=== PATIENT | female | born 1940 | race African-American/Black ===

== ENCOUNTER 2019-02-22 12:48 | Inpatient (IN) ==
[2019-02-22 14:17] LABS: Basophils % 0.3 % (0.0-0.8); Eosinophils # 0.1 10*3/uL (0.0-0.87); Eosinophils % 0.5 % (0.00-10.9); Hematocrit 27.3 VOL% (35.7-47.0); Hemoglobin 8.5 GM/DL (12.0-16.0); Immature Granulocytes Absolute 0.13 #; Lymphocytes # 1.1 10*3/uL (1.4-4.0); Lymphocytes % 8.2 % (21.3-54.2); Mean Corpuscular HGB Conc 31.1 GM/DL (32-36); Mean Corpuscular Volume 89.2 FL (87-102); Mean Platelet Volume 11.4 FL (9.6-12.0); Monocytes % 8.1 % (1.7-12.7); Neutrophils % 81.9 % (38.7-73.9); Platelet Count 180 T/CUMM (130-400); Red Blood Count 3.06 MC/CUMM (3.8-5.5); Red Cell Distribution Width 16.5 % (9.3-17.3); White Blood Count 12.9 T/CUMM (4-12)
[2019-02-22 14:36] LABS: Alanine Aminotransferase 32 U/L (13-56); Albumin 3.1 G/DL (3.4-5.0); Alkaline Phosphatase 105 U/L (45-117); Aspartate Amino Transferase 59 U/L (0-37); Bilirubin,Total < 0.39 MG/DL (0.2-1.0); Blood Urea Nitrogen 70 MG/DL (7-18); Calcium 8.7 MG/DL (8.5-10.1); Estimated Glom Filtration Rate 14 ML/MIN; Glucose 135 MG/DL (74-106); Osmolality,Calculated 295.8 MOS/KG (273-304); Total Protein 8.5 G/DL (6.4-8.3)
[2019-02-22 14:39] LABS: Apearance,Urine CLOUDY (Clear); Bacteria,Urine Occasional /HPF (Few); Bilirubin,Urine Negative (Negative); Blood, Urine Negative (Negative); Glucose,Urine (UA) Negative (Negative); Ketones,Urine Negative (Negative); Nitrite,Urine Negative (Negative); Protein,Urine 30 MG/DL; Squamous Epithelial Cell,Urine Occasional /HPF (0-10); Transitional Epi Cells,Urine Occasional /HPF (<1); Urine Specific Gravity 1.015 (1.001-1.035); Urine Urobilinogen < 2.0 EU/DL (0.2-1.0); WBC,Urine 32 /HPF (0-6)
[2019-02-22 14:40] LABS: Urine Color Dark yellow (Yellow)
[2019-02-22] MEDS ORDERED: cefTRIAXone 1,000 MG in SODIUM CHLORIDE 0.9% 100 ML IV STA (15:30)
[2019-02-22] MEDS ORDERED: FUROSEMIDE 100 MG/10 ML VIAL IV STA (15:30)
[2019-02-22] MEDS ORDERED: MAGNESIUM SULF RIDER 2 GM in PREMIX 1 EACH IV PRN (16:11)
[2019-02-22] MEDS ORDERED: ONDANSETRON 4 MG/2 ML VIAL IV PRN (16:11)
[2019-02-22] MEDS ORDERED: MAGNESIUM SULF RIDER 4 GM in PREMIX 1 EACH IV PRN (16:11)
[2019-02-22] MEDS ORDERED: ENOXAPARIN 30 MG/0.3 ML SYRINGE SUBCUT SCH (16:30)
[2019-02-22] MEDS ORDERED: SODIUM POLYSTYRENE SULFATE 15 GM/60 ML BOTTLE PO STA (18:42)
[2019-02-22] MEDS ORDERED: ASPIRIN CHEW 81 MG TABLET PO ONE (20:35)
[2019-02-22] MEDS: ENOXAPARIN 120 MG/0.8 ML SYRINGE SUBCUT SCH (22:11)
[2019-02-23 05:35] LABS: Basophils % 0.4 % (0.0-0.8); Eosinophils # 0.1 10*3/uL (0.0-0.87); Eosinophils % 0.8 % (0.00-10.9); Hematocrit 24.5 VOL% (35.7-47.0); Hemoglobin 7.6 GM/DL (12.0-16.0); Immature Granulocytes Absolute 0.21 #; Lymphocytes # 1.3 10*3/uL (1.4-4.0); Lymphocytes % 12.6 % (21.3-54.2); Mean Corpuscular Volume 87.8 FL (87-102); Monocytes % 10.6 % (1.7-12.7); Neutrophils % 73.6 % (38.7-73.9); Platelet Count 185 T/CUMM (130-400); Red Blood Count 2.79 MC/CUMM (3.8-5.5); Red Cell Distribution Width 16.2 % (9.3-17.3); White Blood Count 10.6 T/CUMM (4-12)
[2019-02-23 05:51] LABS: Albumin 2.8 G/DL (3.4-5.0); Bilirubin,Total 0.5 MG/DL (0.2-1.0); Calcium 8.5 MG/DL (8.5-10.1); Osmolality,Calculated 303.1 MOS/KG (273-304); Total Protein 7.8 G/DL (6.4-8.3)
[2019-02-23] MEDS: ASPIRIN CHEW 81 MG TABLET PO SCH (08:56)
[2019-02-23] MEDS: FUROSEMIDE 40 MG/4 ML VIAL IV SCH ×2 (08:57→17:00)
[2019-02-23 11:29] LABS: % Iron Saturation 7.3 % (18-50)
[2019-02-23] MEDS: FERRIC GLUCONATE COMPLEX 125 MG in SODIUM CHLORIDE 0.9% 100 ML IV SCH (15:03)
[2019-02-23] MEDS: cefTRIAXone 1,000 MG in SYRINGE 1 EACH IV SCH (17:03)
[2019-02-23] MEDS: ACETAMINOPHEN 325 MG TABLET PO PRN (20:04)
[2019-02-23] MEDS: METOPROLOL TARTRATE 50 MG TABLET PO SCH (20:04)
[2019-02-23] MEDS: ENOXAPARIN 120 MG/0.8 ML SYRINGE SUBCUT SCH (20:04)
[2019-02-24] MEDS: ASPIRIN CHEW 81 MG TABLET PO SCH (09:17)
[2019-02-24] MEDS: METOPROLOL TARTRATE 50 MG TABLET PO SCH ×2 (09:17→21:39)
[2019-02-24] MEDS: FUROSEMIDE 40 MG/4 ML VIAL IV SCH (09:19)
[2019-02-24] MEDS: cefTRIAXone 1,000 MG in SYRINGE 1 EACH IV SCH (09:20)
[2019-02-24] MEDS: FERRIC GLUCONATE COMPLEX 125 MG in SODIUM CHLORIDE 0.9% 100 ML IV SCH (09:36)
[2019-02-24] MEDS ORDERED: POLYETHYLENE GLYCOL POWDER 17 GM PACK PO SCH (12:00)
[2019-02-24] MEDS: POLYETHYLENE GLYCOL POWDER 17 GM PACK PO SCH (21:39)
[2019-02-24] MEDS: DOCUSATE SODIUM 100 MG CAPSULE PO SCH (21:39)
[2019-02-24] MEDS: LACTULOSE 20 GM/30 ML UDCUP PO SCH (21:40)
[2019-02-25 05:07] LABS: Basophils # 0.1 10*3/uL (0.0-0.2); Basophils % 0.4 % (0.0-0.8); Eosinophils # 0.3 10*3/uL (0.0-0.87); Eosinophils % 2.9 % (0.00-10.9); Hematocrit 26.1 VOL% (35.7-47.0); Immature Granulocytes % 5.5 %; Immature Granulocytes Absolute 0.65 #; Lymphocytes # 2.1 10*3/uL (1.4-4.0); Lymphocytes % 17.5 % (21.3-54.2); Mean Corpuscular HGB Conc 30.7 GM/DL (32-36); Mean Corpuscular Volume 87.6 FL (87-102); Mean Platelet Volume 11.6 FL (9.6-12.0); Monocytes % 11.8 % (1.7-12.7); Neutrophils % 61.9 % (38.7-73.9); Platelet Count 286 T/CUMM (130-400); Red Blood Count 2.98 MC/CUMM (3.8-5.5); Red Cell Distribution Width 16.1 % (9.3-17.3); White Blood Count 11.7 T/CUMM (4-12)
[2019-02-25 05:23] LABS: Calcium 8.6 MG/DL (8.5-10.1); Osmolality,Calculated 303.1 MOS/KG (273-304)
[2019-02-25 06:00] LABS: Anisocytosis 1+; Band Neutrophils 1 % (0-10); Eosinophils 8 % (0-10); Lymphocytes 14 % (20-55); Segmented Neutrophils 67 % (50-85); Total Cells Counted 100
[2019-02-25 06:01] LABS: Acanthocytes Few; Hypochromasia 1+; Platelet Estimate Normal; Target Cells Few
[2019-02-25] MEDS: FERRIC GLUCONATE COMPLEX 125 MG in SODIUM CHLORIDE 0.9% 100 ML IV SCH (09:38)
[2019-02-25] MEDS: ASPIRIN CHEW 81 MG TABLET PO SCH (09:39)
[2019-02-25] MEDS: METOPROLOL TARTRATE 50 MG TABLET PO SCH ×2 (09:39→21:08)
[2019-02-25] MEDS: DOCUSATE SODIUM 100 MG CAPSULE PO SCH ×2 (09:39→21:08)
[2019-02-25] MEDS: LACTULOSE 20 GM/30 ML UDCUP PO SCH ×2 (09:40→21:09)
[2019-02-25] MEDS: FUROSEMIDE 40 MG/4 ML VIAL IV SCH (09:42)
[2019-02-25] MEDS: cefTRIAXone 2,000 MG in SYRINGE 1 EACH IV SCH (09:43)
[2019-02-25] MEDS: POLYETHYLENE GLYCOL POWDER 17 GM PACK PO SCH ×2 (09:48→21:08)
[2019-02-25] MEDS: ACETAMINOPHEN 325 MG TABLET PO PRN ×3 (10:37→21:13)
[2019-02-25] MEDS ORDERED: POLYETHYLENE GLYCOL POWDER 17 GM PACK PO SCH (11:00)
[2019-02-25] MEDS: SENNA 8.6 MG TABLET PO SCH (21:09)
[2019-02-26 04:33] LABS: Basophils % 0.3 % (0.0-0.8); Eosinophils # 0.7 10*3/uL (0.0-0.87); Eosinophils % 5.1 % (0.00-10.9); Hematocrit 26.5 VOL% (35.7-47.0); Hemoglobin 8.1 GM/DL (12.0-16.0); Immature Granulocytes Absolute 0.52 #; Lymphocytes # 1.9 10*3/uL (1.4-4.0); Lymphocytes % 14.3 % (21.3-54.2); Mean Corpuscular HGB Conc 30.6 GM/DL (32-36); Mean Corpuscular Volume 88.3 FL (87-102); Mean Platelet Volume 11.3 FL (9.6-12.0); Monocytes % 8.6 % (1.7-12.7); Neutrophils % 67.7 % (38.7-73.9); Platelet Count 347 T/CUMM (130-400); Red Cell Distribution Width 16.4 % (9.3-17.3)
[2019-02-26 05:46] LABS: Anisocytosis 1+; Eosinophils 2 % (0-10); Hypochromasia 1+; Lymphocytes 14 % (20-55); Macrocytosis 1+; Microcytosis 1+; Myelocytes 1 %; Ovalocytes 1+; Segmented Neutrophils 79 % (50-85); Target Cells 1+; Total Cells Counted 100
[2019-02-26 05:47] LABS: Platelet Estimate Adequate; Polychromasia 1+
[2019-02-26] MEDS: ACETAMINOPHEN 325 MG TABLET PO PRN ×2 (10:05→14:11)
[2019-02-26] MEDS: ASPIRIN CHEW 81 MG TABLET PO SCH (10:06)
[2019-02-26] MEDS: METOPROLOL TARTRATE 50 MG TABLET PO SCH ×2 (10:06→20:56)
[2019-02-26] MEDS: DOCUSATE SODIUM 100 MG CAPSULE PO SCH ×2 (10:06→20:56)
[2019-02-26] MEDS: POLYETHYLENE GLYCOL POWDER 17 GM PACK PO SCH ×2 (10:07→20:56)
[2019-02-26] MEDS: FUROSEMIDE 40 MG/4 ML VIAL IV SCH (10:09)
[2019-02-26] MEDS: LACTULOSE 20 GM/30 ML UDCUP PO SCH ×2 (10:10→20:57)
[2019-02-26] MEDS: cefTRIAXone 2,000 MG in SYRINGE 1 EACH IV SCH (10:10)
[2019-02-26] MEDS: SENNA 8.6 MG TABLET PO SCH (20:56)
[2019-02-27] MEDS: ACETAMINOPHEN 325 MG TABLET PO PRN ×2 (00:26→05:20)
[2019-02-27 05:31] LABS: Basophils # 0.1 10*3/uL (0.0-0.2); Basophils % 0.4 % (0.0-0.8); Eosinophils # 0.6 10*3/uL (0.0-0.87); Eosinophils % 4.3 % (0.00-10.9); Hematocrit 26.2 VOL% (35.7-47.0); Hemoglobin 7.8 GM/DL (12.0-16.0); Immature Granulocytes % 2.8 %; Immature Granulocytes Absolute 0.39 #; Lymphocytes # 1.9 10*3/uL (1.4-4.0); Lymphocytes % 13.3 % (21.3-54.2); Mean Corpuscular HGB Conc 29.8 GM/DL (32-36); Mean Platelet Volume 11.1 FL (9.6-12.0); Monocytes % 7.1 % (1.7-12.7); Neutrophils % 72.1 % (38.7-73.9); Platelet Count 378 T/CUMM (130-400); Red Blood Count 2.91 MC/CUMM (3.8-5.5); Red Cell Distribution Width 16.2 % (9.3-17.3)
[2019-02-27 05:45] LABS: Calcium 8.6 MG/DL (8.5-10.1); Osmolality,Calculated 301.1 MOS/KG (273-304)
[2019-02-27 05:58] LABS: Band Neutrophils 1 % (0-10); Eosinophils 7 % (0-10); Lymphocytes 6 % (20-55); Myelocytes 1 %; Segmented Neutrophils 78 % (50-85); Total Cells Counted 100
[2019-02-27 05:59] LABS: Anisocytosis 1+; Hypochromasia 1+; Platelet Estimate Adequate; Target Cells Few
[2019-02-27] MEDS: POLYETHYLENE GLYCOL POWDER 17 GM PACK PO SCH (10:51)
[2019-02-27] MEDS: LACTULOSE 20 GM/30 ML UDCUP PO SCH (10:51)
[2019-02-27] MEDS: DOCUSATE SODIUM 100 MG CAPSULE PO SCH (10:51)
[2019-02-27] MEDS: ASPIRIN CHEW 81 MG TABLET PO SCH (10:51)
[2019-02-27] MEDS: METOPROLOL TARTRATE 50 MG TABLET PO SCH (10:51)
[2019-02-27] MEDS: FUROSEMIDE 40 MG/4 ML VIAL IV SCH (10:52)
[2019-02-27] MEDS: cefTRIAXone 2,000 MG in SYRINGE 1 EACH IV SCH (11:01)
[2019-02-27 11:54] VITALS: BP 141/46
[2019-02-27] MEDS ORDERED: PENICILLIN VK 500 MG TABLET PO SCH (13:00)
== END 2019-02-27 15:43 | disposition home or self-care (01) | DRG 871 ==
LOC: EDBD → EDUNIT# → N.ED 12:48 → N.EDINP 15:55 → SUATTDRO 15:55 → N.2E 16:56
PROVIDERS: ADMIT Family Medicine; ATTEND Hospitalist

== ENCOUNTER 2020-07-03 08:49 | Inpatient (IN) ==
[2020-07-03] MEDS ORDERED: DEXTROSE 50% 25 GM/50 ML VIAL IV PRN (08:50)
[2020-07-03] MEDS ORDERED: GLUCAGON 1 MG VIAL IM PRN (08:50)
[2020-07-03] MEDS: CHLORHEXIDINE 0.12% ORAL RINSE 60 ML BOTTLE SWISH/SPIT SCH ×2 (09:34→21:20)
[2020-07-03 10:10] LABS: Basophils # 0.1 10*3/uL (0.0-0.2); Basophils % 1.1 % (0.0-0.8); Eosinophils # 0.2 10*3/uL (0.0-0.87); Eosinophils % 5.3 % (0.00-10.9); Hematocrit 31.1 VOL% (35.7-47.0); Hemoglobin 9.1 GM/DL (12.0-16.0); Immature Granulocytes % 0.4 %; Immature Granulocytes Absolute 0.02 #; Lymphocytes % 22.4 % (21.3-54.2); Mean Corpuscular HGB Conc 29.3 GM/DL (32-36); Mean Corpuscular Volume 95.7 FL (87-102); Mean Platelet Volume 10.5 FL (9.6-12.0); Monocytes % 11.1 % (1.7-12.7); Neutrophils % 59.7 % (38.7-73.9); Platelet Count 149 T/CUMM (130-400); Red Blood Count 3.25 MC/CUMM (3.8-5.5); Red Cell Distribution Width 17.9 % (9.3-17.3); White Blood Count 4.5 T/CUMM (4-12)
[2020-07-03 10:19] LABS: ABG Base Excess -1.6 MMOL/L (-2.5-2.5); ABG Oxygen Saturation 95.8 % (95-100); ABG PCO2 42.6 MM HG (35-48); ABG PH 7.355 (7.35-7.45); ABG PO2 84.1 MM HG (80-95); ABG TCO2 21.9 MMOL/L (23-27); Allen Test Positive; Pt O2 Delivery Device Room Air
[2020-07-03 10:33] LABS: Albumin 3.5 G/DL (3.4-5.0); Bilirubin,Total 0.6 MG/DL (0.2-1.0); Calcium 9.4 MG/DL (8.5-10.1); Osmolality,Calculated 287.8 MOS/KG (273-304); Potassium 5.1 MMOL/L (3.5-5.1); Total Protein 8.3 G/DL (6.4-8.2)
[2020-07-03] MEDS: SODIUM CHLORIDE 0.9% 1,000 ML IV SCH (12:20)
[2020-07-03] MEDS: CHLORHEXIDINE 4% SOLN 118 ML BOTTLE TOP SCH ×3 (12:20→21:22)
[2020-07-04] MEDS ORDERED: PAPAVERINE 60 MG/2 ML VIAL ONE (04:22)
[2020-07-04] MEDS ORDERED: VANCOMYCIN 500 MG VIAL ONE (04:22)
[2020-07-04] MEDS ORDERED: VANCOMYCIN 1,000 MG VIAL ONE (04:22)
[2020-07-04] MEDS ORDERED: CEFUROXIME INJ 1,500 MG in SODIUM CHLORIDE 0.9% 100 ML IV ONE (05:00)
[2020-07-04] MEDS ORDERED: SODIUM CHLORIDE 0.9% 250 ML IV ONE (05:35)
[2020-07-04] MEDS ORDERED: AMINOCAPROIC ACID 5,000 MG/20 ML VIAL ONE (05:35)
[2020-07-04] MEDS ORDERED: VECURONIUM 10 MG VIAL IV ONE (05:35)
[2020-07-04] MEDS ORDERED: CALCIUM CHLORIDE 1,000 MG/10 ML VIAL IV ONE ×2 (05:35→11:13)
[2020-07-04] MEDS ORDERED: SODIUM CHLORIDE 0.9% 1,000 ML IV ONE (05:35)
[2020-07-04] MEDS ORDERED: HEPARIN/NACL 0.9% 2 UNITS/ML 1,000 UNIT/500 ML BAG IV ONE (05:35)
[2020-07-04] MEDS ORDERED: SUFentanil 250 MCG/5 ML AMP ONE ×2 (05:35→08:13)
[2020-07-04] MEDS ORDERED: LACTATED RINGERS 1,000 ML IV ONE (05:35)
[2020-07-04] MEDS ORDERED: ETOMIDATE 40 MG/20 ML VIAL IV ONE (05:35)
[2020-07-04] MEDS ORDERED: LIDOCAINE 2% 5 ML VIAL ONE ×2 (05:35→10:45)
[2020-07-04] MEDS ORDERED: MIDAZOLAM 10 MG/2 ML VIAL ONE ×4 (05:35)
[2020-07-04] MEDS ORDERED: MINERAL OIL/PETROLATUM OPH OINT 3.5 GM TUBE ONE ×2 (05:55→11:46)
[2020-07-04] MEDS ORDERED: diphenhydrAMINE 50 MG/1 ML VIAL ONE (05:56)
[2020-07-04] MEDS ORDERED: FAMOTIDINE 20 MG/2 ML VIAL IV ONE (05:58)
[2020-07-04] MEDS ORDERED: PHENYLEPHRINE 10 MG/1 ML VIAL IV ONE (05:59)
[2020-07-04 07:46] LABS: ABG Base Excess -3.3 MMOL/L (-2.5-2.5); ABG Oxygen Saturation 99.9 % (95-100); ABG PCO2 40.5 MM HG (35-48); ABG PH 7.352 (7.35-7.45); ABG PO2 483.8 MM HG (80-95); ABG TCO2 23.2 MMOL/L (23-27); Glucose Heart Surgery 95 MG/DL (74-106); Hemoglobin Heart Surgery 8.6 G/DL (12.0-16.0); Ionized Calcium Arterial 1.15 MMOL/L (1.21-1.46); PCO2 Patient Temp Arterial 40.5 MMHG; PH Patient Temp Arterial 7.352; PO2 Patient Temp Arterial 483.8 MM HG; Patient Temperature 37 CELCIUS; Potassium Heart/CVR 4.9 MMOL/L (3.5-5.1); Sodium Heart/CVR 139 MMOL/L (135-145)
[2020-07-04 08:13] LABS: Bilirubin,Urine Negative (Negative); Blood, Urine Negative (Negative); Glucose,Urine (UA) Negative (Negative); Ketones,Urine Negative (Negative); Nitrite,Urine Negative (Negative); Protein,Urine 30 MG/DL; RBC,Urine 1 /HPF (0-4); Squamous Epithelial Cell,Urine Occasional /HPF (0-10); Urine Appearance CLEAR (Clear); Urine Color Yellow (Yellow); Urine Specific Gravity 1.013 (1.001-1.035); Urine Urobilinogen < 2.0 EU/DL (0.2-1.0); WBC,Urine 1 /HPF (0-6)
[2020-07-04] MEDS ORDERED: SODIUM CHLORIDE 0.9% 100 ML IV ONE (08:50)
[2020-07-04] MEDS ORDERED: NITROPRUSSIDE 50 MG/2 ML VIAL ONE (08:50)
[2020-07-04] MEDS ORDERED: SODIUM BICARBONATE 50 MEQ/50 ML VIAL IV ONE ×2 (08:50→10:46)
[2020-07-04] MEDS ORDERED: NITROGLYCERIN DRIP 50 MG/250 ML BOTTLE IV ONE (08:50)
[2020-07-04] MEDS ORDERED: POTASSIUM CHLORIDE RIDER 100 ML IV ONE (08:50)
[2020-07-04] MEDS ORDERED: SEVOFLURANE 1 UNIT/15 MINUTE INH ONE ×15 (08:50→11:46)
[2020-07-04] MEDS ORDERED: PHENYLEPHRINE DRIP 40 MG/250 ML PREMIX IV ONE (08:51)
[2020-07-04] MEDS ORDERED: CALCIUM CHLORIDE 1,000 MG/10 ML SYRINGE IV ONE (08:51)
[2020-07-04] MEDS ORDERED: ALBUMIN 5% 25.0 GM/500 ML VIAL IV ONE (08:51)
[2020-07-04 09:50] LABS: PCO2 Patient Temp Venous 30.7 MM HG; PH Patient Temp Venous 7.477; PO2 Patient Temp Venous 43.5 MM HG; Potassium Heart/CVR 5.3 MMOL/L (3.5-5.1); VBG Base Excess -1.3 MEQ/L (0-4); VBG HCO3 22.8 MEQ/L (24-28); VBG Oxygen Saturation 86.6 %; VBG PH 7.432; VBG PO2 53.6 MMHG (17-40); VBG Total CO2 23.9 MMOL/L
[2020-07-04 09:51] LABS: Hemoglobin Heart Surgery 6.1 G/DL (12.0-16.0)
[2020-07-04 10:20] LABS: PCO2 Patient Temp Venous 29.8 MM HG; PH Patient Temp Venous 7.487; PO2 Patient Temp Venous 38.6 MM HG; Potassium Heart/CVR 5.6 MMOL/L (3.5-5.1); VBG Base Excess -1.1 MEQ/L (0-4); VBG HCO3 22.4 MEQ/L (24-28); VBG Oxygen Saturation 80.2 %; VBG PCO2 32.5 MMHG (41-51); VBG PH 7.457; VBG PO2 44.4 MMHG (17-40); VBG Total CO2 23.4 MMOL/L
[2020-07-04 10:45] LABS: ABG Base Excess -2.3 MMOL/L (-2.5-2.5); ABG HCO3 21.3 MMOL/L (20-26); ABG Oxygen Saturation 99.3 % (95-100); ABG PCO2 31.5 MM HG (35-48); ABG PH 7.448 (7.35-7.45); ABG PO2 438.2 MM HG (80-95); ABG TCO2 22.3 MMOL/L (23-27); Glucose Heart Surgery 144 MG/DL (74-106); Hemoglobin Heart Surgery 7.4 G/DL (12.0-16.0); Ionized Calcium Arterial 1.13 MMOL/L (1.21-1.46); PCO2 Patient Temp Arterial 31.5 MMHG; PH Patient Temp Arterial 7.448; PO2 Patient Temp Arterial 438.2 MM HG; Patient Temperature 37 CELCIUS; Potassium Heart/CVR 5.2 MMOL/L (3.5-5.1); Sodium Heart/CVR 136 MMOL/L (135-145)
[2020-07-04] MEDS ORDERED: MAGNESIUM SULFATE 5 GM/10 ML VIAL IV ONE (10:45)
[2020-07-04] MEDS ORDERED: ALBUMIN 25% 25 GM/100 ML VIAL IV ONE (10:45)
[2020-07-04] MEDS ORDERED: methylPREDNISolone SOD SUC 1,000 MG/8 ML VIAL ONE (10:45)
[2020-07-04] MEDS ORDERED: DEXTROSE 5% KCL 20 MEQ 20 MEQ/1,000 ML BAG IV ONE (10:45)
[2020-07-04] MEDS ORDERED: HEPARIN 10,000 UNIT/10 ML VIAL ONE (10:46)
[2020-07-04] MEDS ORDERED: MANNITOL 100 GM/500 ML BAG IV ONE (10:46)
[2020-07-04] MEDS ORDERED: FUROSEMIDE 20 MG/2 ML VIAL ONE (10:46)
[2020-07-04] MEDS ORDERED: PROTAMINE SULFATE 250 MG/25 ML VIAL IV ONE (10:46)
[2020-07-04] MEDS ORDERED: PROTAMINE SULFATE 50 MG/5 ML VIAL IV ONE ×2 (10:46→12:13)
[2020-07-04] MEDS: CHLORHEXIDINE 0.12% ORAL RINSE 60 ML BOTTLE SWISH/SPIT SCH ×2 (11:00→20:20)
[2020-07-04] MEDS: SODIUM CHLORIDE 0.9% 1,000 ML IV SCH (11:00)
[2020-07-04] MEDS ORDERED: MIDAZOLAM 10 MG/2 ML VIAL IV PRN (11:28)
[2020-07-04] MEDS ORDERED: ACETAMINOPHEN 650 MG SUPP RECTAL PRN (11:28)
[2020-07-04] MEDS ORDERED: CHLORHEXIDINE 4% SOLN 118 ML BOTTLE TOP PRN (11:28)
[2020-07-04] MEDS ORDERED: MIDAZOLAM 2 MG/2 ML VIAL IV PRN (11:28)
[2020-07-04] MEDS ORDERED: LACTATED RINGERS 250 ML IV PRN (11:28)
[2020-07-04] MEDS ORDERED: MAGNESIUM SULF RIDER 2 GM/50 ML PREMIX IV PRN (11:28)
[2020-07-04] MEDS ORDERED: POTASSIUM CHLORIDE RIDER 20 MEQ in PREMIX 1 EACH IV PRN (11:28)
[2020-07-04] MEDS ORDERED: CALCIUM CHLORIDE 1,000 MG/10 ML SYRINGE IV PRN (11:28)
[2020-07-04] MEDS ORDERED: DEXTROSE 50% 25 GM/50 ML VIAL IV PRN (11:28)
[2020-07-04] MEDS ORDERED: INSULIN REGULAR 100 UNIT/ML IV ONE (11:28)
[2020-07-04] MEDS ORDERED: INSULIN REGULAR 100 UNIT/ML IV PRN (11:28)
[2020-07-04] MEDS ORDERED: VECURONIUM 10 MG VIAL IV PRN ×2 (11:28)
[2020-07-04] MEDS ORDERED: POTASSIUM CHLORIDE RIDER 10 MEQ in PREMIX 1 EACH IV PRN (11:28)
[2020-07-04] MEDS ORDERED: MAGNESIUM SULF RIDER 4 GM/100 ML PREMIX IV PRN (11:28)
[2020-07-04] MEDS ORDERED: MORPHINE 10 MG/1 ML VIAL IV PRN (11:28)
[2020-07-04 12:14] LABS: ABG Base Excess 0.5 MMOL/L (-2.5-2.5); ABG HCO3 24.3 MMOL/L (20-26); ABG Oxygen Saturation 98.9 % (95-100); ABG PCO2 34.5 MM HG (35-48); ABG PH 7.465 (7.35-7.45); ABG TCO2 25.3 MMOL/L (23-27); Glucose Heart Surgery 128 MG/DL (74-106); Potassium Heart/CVR 4.9 MMOL/L (3.5-5.1)
[2020-07-04 12:17] LABS: Basophils % 0.2 % (0.0-0.8); Eosinophils # 0.1 10*3/uL (0.0-0.87); Hematocrit 19.7 VOL% (35.7-47.0); Hemoglobin Heart Surgery 6.3 G/DL (12.0-16.0); Immature Granulocytes % 1.2 %; Lymphocytes # 0.7 10*3/uL (1.4-4.0); Lymphocytes % 8.9 % (21.3-54.2); Mean Corpuscular HGB Conc 30.5 GM/DL (32-36); Mean Corpuscular Volume 94.7 FL (87-102); Mean Platelet Volume 10.9 FL (9.6-12.0); Monocytes % 6.6 % (1.7-12.7); Neutrophils % 82.1 % (38.7-73.9); Platelet Count 146 T/CUMM (130-400); Red Blood Count 2.08 MC/CUMM (3.8-5.5); Red Cell Distribution Width 17.4 % (9.3-17.3); White Blood Count 8.3 T/CUMM (4-12)
[2020-07-04 12:28] LABS: INR 1.4; PT Patient Result 14.9 SECS (9.8-11.9); Partial Thromboplastin Time 30.8 SECS (23.9-33.8)
[2020-07-04 12:51] LABS: CKMB % 8.9 %
[2020-07-04 12:53] LABS: Troponin I 5.79 NG/ML (0.00-0.045)
[2020-07-04 13:01] LABS: Albumin 2.4 G/DL (3.4-5.0); Bilirubin,Total 2.2 MG/DL (0.2-1.0); Calcium 9.2 MG/DL (8.5-10.1); Osmolality,Calculated 297.1 MOS/KG (273-304); Potassium 4.9 MMOL/L (3.5-5.1); Total Protein 5.2 G/DL (6.4-8.2)
[2020-07-04] MEDS: SODIUM CHLORIDE 0.45% 1,000 ML IV SCH ×2 (13:22→13:23)
[2020-07-04] MEDS: INSULIN REGULAR DRIP 100 ML IV SCH (13:23)
[2020-07-04] MEDS: NITROPRUSSIDE 100 MG in DEXTROSE 5% 250 ML IV PRN ×2 (13:52→22:05)
[2020-07-04 14:50] LABS: ABG Base Excess -0.8 MMOL/L (-2.5-2.5); ABG HCO3 23.8 MMOL/L (20-26); ABG Oxygen Saturation 99.6 % (95-100); ABG PCO2 35.5 MM HG (35-48); ABG PH 7.425 (7.35-7.45); ABG TCO2 21.7 MMOL/L (23-27); Glucose Heart Surgery 168 MG/DL (74-106); Hematocrit Heart Surgery 25.3 PERCENT (37-47); Hemoglobin Heart Surgery 8.1 G/DL (12.0-16.0)
[2020-07-04] MEDS ORDERED: INSULIN REGULAR 100 UNIT/ML SUBCUT SCH (16:00)
[2020-07-04] MEDS: INSULIN REGULAR 100 UNIT/ML SUBCUT SCH ×2 (16:33→20:19)
[2020-07-04] MEDS ORDERED: SODIUM CHLORIDE 0.9% 1,000 ML IV PRN (16:59)
[2020-07-04] MEDS: CEFUROXIME INJ 1,500 MG in SODIUM CHLORIDE 0.9% 100 ML IV SCH (18:09)
[2020-07-04 18:10] LABS: ABG Base Excess -2.6 MMOL/L (-2.5-2.5); ABG HCO3 22.2 MMOL/L (20-26); ABG Oxygen Saturation 98.6 % (95-100); ABG PCO2 41.1 MM HG (35-48); ABG PH 7.352 (7.35-7.45); ABG TCO2 20.8 MMOL/L (23-27); Glucose Heart Surgery 181 MG/DL (74-106); Hematocrit Heart Surgery 30.8 PERCENT (37-47); Potassium Heart/CVR 4.9 MMOL/L (3.5-5.1)
[2020-07-04] MEDS ORDERED: FUROSEMIDE 40 MG/4 ML VIAL IV ONE (18:30)
[2020-07-04 20:10] LABS: ABG Base Excess -2.8 MMOL/L (-2.5-2.5); ABG HCO3 22.1 MMOL/L (20-26); ABG Oxygen Saturation 98.2 % (95-100); ABG PCO2 41.7 MM HG (35-48); ABG PH 7.345 (7.35-7.45); ABG TCO2 20.8 MMOL/L (23-27); Glucose Heart Surgery 188 MG/DL (74-106); Hematocrit Heart Surgery 30.8 PERCENT (37-47); Potassium Heart/CVR 4.7 MMOL/L (3.5-5.1)
[2020-07-04 21:00] LABS: ABG Base Excess -3.6 MMOL/L (-2.5-2.5); ABG HCO3 21.4 MMOL/L (20-26); ABG Oxygen Saturation 98.1 % (95-100); ABG PCO2 45.5 MM HG (35-48); ABG PH 7.307 (7.35-7.45); ABG TCO2 20.9 MMOL/L (23-27); Glucose Heart Surgery 186 MG/DL (74-106); Hematocrit Heart Surgery 30.3 PERCENT (37-47); Hemoglobin Heart Surgery 9.8 G/DL (12.0-16.0); Potassium Heart/CVR 4.6 MMOL/L (3.5-5.1)
[2020-07-04 22:49] LABS: CKMB % 8.5 %
[2020-07-04 22:51] LABS: Troponin I 9.31 NG/ML (0.00-0.045)
[2020-07-04 23:08] LABS: ABG Base Excess -2.2 MMOL/L (-2.5-2.5); ABG HCO3 23.1 MMOL/L (20-26); ABG PCO2 42.1 MM HG (35-48); ABG PH 7.358 (7.35-7.45); ABG TCO2 24.4 MMOL/L (23-27); Glucose Heart Surgery 150 MG/DL (74-106); Potassium Heart/CVR 4.6 MMOL/L (3.5-5.1)
[2020-07-04] MEDS: ALBUMIN 5% 12.5 GM/250 ML VIAL IV PRN (23:10)
[2020-07-04] MEDS: MORPHINE 4 MG/1 ML VIAL IV PRN (23:15)
[2020-07-05] MEDS ORDERED: FUROSEMIDE 40 MG/4 ML VIAL IV ONE ×2 (00:01→01:51)
[2020-07-05] MEDS: INSULIN REGULAR 100 UNIT/ML SUBCUT SCH ×6 (01:03→22:10)
[2020-07-05 01:50] LABS: ABG Base Excess -1.4 MMOL/L (-2.5-2.5); ABG HCO3 23.2 MMOL/L (20-26); ABG Oxygen Saturation 98.5 % (95-100); ABG PCO2 44.4 MM HG (35-48); ABG PH 7.346 (7.35-7.45); ABG TCO2 22.4 MMOL/L (23-27); Glucose Heart Surgery 193 MG/DL (74-106); Hematocrit Heart Surgery 29.1 PERCENT (37-47); Hemoglobin Heart Surgery 9.4 G/DL (12.0-16.0); Potassium Heart/CVR 4.6 MMOL/L (3.5-5.1)
[2020-07-05] MEDS: FUROSEMIDE INJ 100 MG in SODIUM CHLORIDE 0.9% 90 ML IV SCH ×3 (02:23→12:10)
[2020-07-05 04:08] LABS: ABG Base Excess -1.6 MMOL/L (-2.5-2.5); ABG HCO3 23.5 MMOL/L (20-26); ABG Oxygen Saturation 97.3 % (95-100); ABG PCO2 41.3 MM HG (35-48); ABG PH 7.373 (7.35-7.45); ABG PO2 101.6 MM HG (80-95); ABG TCO2 24.8 MMOL/L (23-27); Glucose Heart Surgery 152 MG/DL (74-106); Hemoglobin Heart Surgery 10.3 G/DL (12.0-16.0); Potassium Heart/CVR 4.5 MMOL/L (3.5-5.1)
[2020-07-05 04:10] LABS: Hematocrit 30.7 VOL% (35.7-47.0); Immature Granulocytes % 0.3 %; Immature Granulocytes Absolute 0.03 #; Lymphocytes # 0.5 10*3/uL (1.4-4.0); Lymphocytes % 5.3 % (21.3-54.2); Mean Corpuscular HGB Conc 31.9 GM/DL (32-36); Mean Corpuscular Volume 89.2 FL (87-102); Mean Platelet Volume 10.9 FL (9.6-12.0); Monocytes % 6.5 % (1.7-12.7); Neutrophils % 87.9 % (38.7-73.9); Platelet Count 144 T/CUMM (130-400); Red Cell Distribution Width 18.4 % (9.3-17.3); White Blood Count 9.9 T/CUMM (4-12)
[2020-07-05 04:16] LABS: Hemoglobin 9.8 GM/DL (12.0-16.0); Red Blood Count 3.44 MC/CUMM (3.8-5.5)
[2020-07-05 04:29] LABS: Albumin 2.5 G/DL (3.4-5.0); Bilirubin,Direct 0.56 MG/DL (0.0-0.20); Bilirubin,Total 1.8 MG/DL (0.2-1.0); Calcium 8.8 MG/DL (8.5-10.1); Osmolality,Calculated 298.3 MOS/KG (273-304); Potassium 4.6 MMOL/L (3.5-5.1); Total Protein 5.7 G/DL (6.4-8.2)
[2020-07-05 04:30] LABS: CKMB % 8.8 %
[2020-07-05 04:31] LABS: Troponin I 8.25 NG/ML (0.00-0.045)
[2020-07-05] MEDS: NITROPRUSSIDE 100 MG in DEXTROSE 5% 250 ML IV PRN (06:45)
[2020-07-05] MEDS ORDERED: ASPIRIN CHEW 81 MG TABLET PO ONE (09:00)
[2020-07-05] MEDS: CEFUROXIME INJ 1,500 MG in SODIUM CHLORIDE 0.9% 100 ML IV SCH ×2 (09:03→19:15)
[2020-07-05] MEDS: CHLORHEXIDINE 0.12% ORAL RINSE 60 ML BOTTLE SWISH/SPIT SCH ×2 (09:06→22:13)
[2020-07-05] MEDS: METOPROLOL TARTRATE 50 MG TABLET PO SCH ×2 (09:06→22:11)
[2020-07-05 09:24] LABS: ABG PCO2 42.4 MM HG (35-48); ABG PH 7.377 (7.35-7.45)
[2020-07-05 09:25] LABS: ABG Base Excess -0.3 MMOL/L (-2.5-2.5); ABG HCO3 24.1 MMOL/L (20-26); ABG Oxygen Saturation 98.7 % (95-100); ABG TCO2 22.7 MMOL/L (23-27); Glucose Heart Surgery 171 MG/DL (74-106); Potassium Heart/CVR 4.6 MMOL/L (3.5-5.1)
[2020-07-05] MEDS: ASCORBIC ACID 500 MG TABLET NG SCH ×2 (10:33→22:10)
[2020-07-05 11:16] LABS: ABG HCO3 23.6 MMOL/L (20-26); ABG Oxygen Saturation 97.2 % (95-100); ABG PCO2 42.8 MM HG (35-48); ABG PH 7.365 (7.35-7.45); ABG PO2 88.9 MM HG (80-95); ABG TCO2 22.1 MMOL/L (23-27); Glucose Heart Surgery 151 MG/DL (74-106); Hematocrit Heart Surgery 33.5 PERCENT (37-47); Hemoglobin Heart Surgery 10.9 G/DL (12.0-16.0); Potassium Heart/CVR 4.8 MMOL/L (3.5-5.1)
[2020-07-05] MEDS: INSULIN REGULAR DRIP 100 ML IV SCH (12:37)
[2020-07-05] MEDS: SODIUM CHLORIDE 0.45% 1,000 ML IV SCH ×2 (12:38→12:39)
[2020-07-05 14:50] LABS: CKMB % 6.1 %
[2020-07-05 14:55] LABS: Troponin I 7.84 NG/ML (0.00-0.045)
[2020-07-05] MEDS ORDERED: ALBUMIN 5% 25 GM/500 ML VIAL IV ONE (15:33)
[2020-07-05] MEDS: PHENYLEPHRINE DRIP 40 MG/250 ML PREMIX IV PRN (16:16)
[2020-07-05] MEDS: ROSUVASTATIN 20 MG TABLET NG SCH (22:11)
[2020-07-06 05:09] LABS: Basophils % 0.1 % (0.0-0.8); Hematocrit 31.2 VOL% (35.7-47.0); Hemoglobin 9.8 GM/DL (12.0-16.0); Immature Granulocytes % 0.5 %; Immature Granulocytes Absolute 0.07 #; Mean Corpuscular HGB Conc 31.4 GM/DL (32-36); Mean Platelet Volume 12.1 FL (9.6-12.0); Monocytes % 9.9 % (1.7-12.7); Neutrophils % 82.5 % (38.7-73.9); Platelet Count 135 T/CUMM (130-400); Red Blood Count 3.39 MC/CUMM (3.8-5.5); Red Cell Distribution Width 19.3 % (9.3-17.3); White Blood Count 13.6 T/CUMM (4-12)
[2020-07-06 05:27] LABS: CKMB % 4.4 %
[2020-07-06 05:29] LABS: Albumin 3.3 G/DL (3.4-5.0); Bilirubin,Direct 0.41 MG/DL (0.0-0.20); Bilirubin,Total 1.1 MG/DL (0.2-1.0); Calcium 8.7 MG/DL (8.5-10.1); Osmolality,Calculated 292.7 MOS/KG (273-304); Potassium 5.1 MMOL/L (3.5-5.1); Total Protein 6.7 G/DL (6.4-8.2)
[2020-07-06] MEDS ORDERED: FUROSEMIDE 40 MG/4 ML VIAL IV ONE (05:39)
[2020-07-06] MEDS: ALBUMIN 5% 12.5 GM/250 ML VIAL IV PRN ×2 (05:46→06:22)
[2020-07-06 05:58] LABS: Troponin I 4.68 NG/ML (0.00-0.045)
[2020-07-06] MEDS: PHENYLEPHRINE DRIP 40 MG/250 ML PREMIX IV PRN ×2 (06:02→09:55)
[2020-07-06] MEDS: INSULIN REGULAR 100 UNIT/ML SUBCUT SCH ×3 (07:43→17:03)
[2020-07-06] MEDS: DOBUTamine 500 MG/250 ML PREMIX IV SCH (08:44)
[2020-07-06] MEDS: ASPIRIN CHEW 81 MG TABLET PO SCH (08:45)
[2020-07-06] MEDS: CHLORHEXIDINE 0.12% ORAL RINSE 60 ML BOTTLE SWISH/SPIT SCH ×2 (08:45→21:40)
[2020-07-06] MEDS: METOPROLOL TARTRATE 50 MG TABLET PO SCH ×2 (08:45→21:40)
[2020-07-06] MEDS: ASCORBIC ACID 500 MG TABLET NG SCH ×2 (08:45→21:40)
[2020-07-06] MEDS: FUROSEMIDE INJ 100 MG in SODIUM CHLORIDE 0.9% 90 ML IV SCH ×3 (08:45→18:51)
[2020-07-06] MEDS: ONDANSETRON 4 MG/2 ML VIAL IV PRN (09:11)
[2020-07-06] MEDS: SODIUM CHLORIDE 0.45% 1,000 ML IV SCH ×4 (13:25→14:48)
[2020-07-06] MEDS ORDERED: ALBUTEROL/IPRATROPIUM 3 ML NEB RESP TX PRN (14:53)
[2020-07-06] MEDS: ROSUVASTATIN 20 MG TABLET NG SCH (21:40)
[2020-07-07] MEDS: FUROSEMIDE INJ 100 MG in SODIUM CHLORIDE 0.9% 90 ML IV SCH ×5 (00:45→22:13)
[2020-07-07] MEDS: INSULIN REGULAR 100 UNIT/ML SUBCUT SCH ×5 (01:20→21:48)
[2020-07-07] MEDS: DOBUTamine 500 MG/250 ML PREMIX IV SCH (05:09)
[2020-07-07 05:54] LABS: Basophils % 0.2 % (0.0-0.8); Eosinophils # 0.1 10*3/uL (0.0-0.87); Eosinophils % 0.7 % (0.00-10.9); Hematocrit 29.8 VOL% (35.7-47.0); Hemoglobin 9.2 GM/DL (12.0-16.0); Immature Granulocytes % 0.8 %; Immature Granulocytes Absolute 0.08 #; Lymphocytes # 0.9 10*3/uL (1.4-4.0); Lymphocytes % 8.4 % (21.3-54.2); Mean Corpuscular HGB Conc 30.9 GM/DL (32-36); Mean Platelet Volume 12.4 FL (9.6-12.0); Monocytes % 9.3 % (1.7-12.7); Neutrophils % 80.6 % (38.7-73.9); Platelet Count 120 T/CUMM (130-400); Red Blood Count 3.17 MC/CUMM (3.8-5.5); Red Cell Distribution Width 19.6 % (9.3-17.3); White Blood Count 10.7 T/CUMM (4-12)
[2020-07-07 06:17] LABS: Albumin 3.2 G/DL (3.4-5.0); Bilirubin,Direct 0.45 MG/DL (0.0-0.20); Bilirubin,Total 0.9 MG/DL (0.2-1.0); Calcium 8.7 MG/DL (8.5-10.1); Osmolality,Calculated 293.7 MOS/KG (273-304); Potassium 5.2 MMOL/L (3.5-5.1); Total Protein 6.9 G/DL (6.4-8.2)
[2020-07-07] MEDS: ONDANSETRON 4 MG/2 ML VIAL IV PRN ×2 (09:24→23:16)
[2020-07-07] MEDS: CHLORHEXIDINE 0.12% ORAL RINSE 60 ML BOTTLE SWISH/SPIT SCH ×2 (09:29→22:12)
[2020-07-07] MEDS: METOPROLOL TARTRATE 50 MG TABLET PO SCH ×2 (09:29→21:47)
[2020-07-07] MEDS: ASPIRIN CHEW 81 MG TABLET PO SCH (09:29)
[2020-07-07] MEDS: ASCORBIC ACID 500 MG TABLET NG SCH ×2 (09:29→23:16)
[2020-07-07] MEDS: SODIUM CHLORIDE 0.45% 1,000 ML IV SCH (10:27)
[2020-07-07] MEDS: AMIODARONE 200 MG TABLET PO SCH ×2 (11:00→21:47)
[2020-07-07] MEDS: ALBUTEROL/IPRATROPIUM 3 ML NEB RESP TX SCH ×3 (11:06→20:51)
[2020-07-07] MEDS: ROSUVASTATIN 20 MG TABLET NG SCH (21:47)
[2020-07-08] MEDS: ALBUTEROL/IPRATROPIUM 3 ML NEB RESP TX SCH ×7 (00:48→23:51)
[2020-07-08] MEDS ORDERED: AMIODARONE INJ 50 MG in DEXTROSE 5% 100 ML IV ONE (00:58)
[2020-07-08] MEDS ORDERED: AMIODARONE 450 MG/9 ML VIAL IV ONE (01:04)
[2020-07-08] MEDS ORDERED: AMIODARONE 150 MG/3 ML VIAL ONE (01:15)
[2020-07-08] MEDS: FUROSEMIDE INJ 100 MG in SODIUM CHLORIDE 0.9% 90 ML IV SCH ×6 (03:13→22:49)
[2020-07-08] MEDS: DOBUTamine 500 MG/250 ML PREMIX IV SCH (04:34)
[2020-07-08 06:00] LABS: Basophils % 0.2 % (0.0-0.8); Eosinophils # 0.1 10*3/uL (0.0-0.87); Eosinophils % 1.1 % (0.00-10.9); Hematocrit 29.5 VOL% (35.7-47.0); Hemoglobin 8.7 GM/DL (12.0-16.0); Immature Granulocytes Absolute 0.09 #; Lymphocytes # 0.6 10*3/uL (1.4-4.0); Lymphocytes % 6.7 % (21.3-54.2); Mean Corpuscular HGB Conc 29.5 GM/DL (32-36); Mean Corpuscular Volume 95.8 FL (87-102); Mean Platelet Volume 12.2 FL (9.6-12.0); Monocytes % 10.6 % (1.7-12.7); Neutrophils % 80.4 % (38.7-73.9); Platelet Count 124 T/CUMM (130-400); Red Blood Count 3.08 MC/CUMM (3.8-5.5); Red Cell Distribution Width 18.9 % (9.3-17.3); White Blood Count 9.3 T/CUMM (4-12)
[2020-07-08 06:27] LABS: Calcium 8.7 MG/DL (8.5-10.1); Potassium 5.2 MMOL/L (3.5-5.1)
[2020-07-08] MEDS: SODIUM CHLORIDE 0.45% 1,000 ML IV SCH (07:34)
[2020-07-08] MEDS: INSULIN REGULAR 100 UNIT/ML SUBCUT SCH ×4 (08:13→22:37)
[2020-07-08] MEDS: ASPIRIN CHEW 81 MG TABLET PO SCH (08:31)
[2020-07-08] MEDS: ASCORBIC ACID 500 MG TABLET NG SCH ×2 (08:32→20:13)
[2020-07-08] MEDS: AMIODARONE 200 MG TABLET PO SCH ×2 (08:32→20:14)
[2020-07-08] MEDS: CHLORHEXIDINE 0.12% ORAL RINSE 60 ML BOTTLE SWISH/SPIT SCH ×2 (08:32→20:14)
[2020-07-08] MEDS: METOPROLOL TARTRATE 50 MG TABLET PO SCH ×2 (08:32→20:14)
[2020-07-08] MEDS: ROSUVASTATIN 20 MG TABLET NG SCH (20:14)
[2020-07-08] MEDS ORDERED: DILTIAZEM 50 MG/10 ML VIAL IV ONE (20:57)
[2020-07-08] MEDS: ONDANSETRON 4 MG/2 ML VIAL IV PRN (21:24)
[2020-07-08] MEDS: DILTIAZEM INJ 100 MG in SODIUM CHLORIDE 0.9% 100 ML IV SCH (21:48)
[2020-07-09] MEDS: DOBUTamine 500 MG/250 ML PREMIX IV SCH ×2 (01:20→22:53)
[2020-07-09] MEDS: FUROSEMIDE INJ 100 MG in SODIUM CHLORIDE 0.9% 90 ML IV SCH ×6 (02:45→23:15)
[2020-07-09] MEDS: ALBUTEROL/IPRATROPIUM 3 ML NEB RESP TX SCH ×6 (03:37→23:25)
[2020-07-09 04:39] LABS: Basophils % 0.1 % (0.0-0.8); Eosinophils # 0.2 10*3/uL (0.0-0.87); Eosinophils % 2.1 % (0.00-10.9); Hematocrit 28.3 VOL% (35.7-47.0); Hemoglobin 8.4 GM/DL (12.0-16.0); Immature Granulocytes % 1.2 %; Lymphocytes # 0.7 10*3/uL (1.4-4.0); Lymphocytes % 7.9 % (21.3-54.2); Mean Corpuscular HGB Conc 29.7 GM/DL (32-36); Mean Corpuscular Volume 95.3 FL (87-102); Monocytes % 12.4 % (1.7-12.7); Neutrophils % 76.3 % (38.7-73.9); Platelet Count 127 T/CUMM (130-400); Red Blood Count 2.97 MC/CUMM (3.8-5.5); Red Cell Distribution Width 18.7 % (9.3-17.3); White Blood Count 8.2 T/CUMM (4-12)
[2020-07-09 05:02] LABS: Calcium 8.6 MG/DL (8.5-10.1); Osmolality,Calculated 297.7 MOS/KG (273-304); Potassium 5.3 MMOL/L (3.5-5.1)
[2020-07-09] MEDS ORDERED: AMIODARONE 450 MG/9 ML VIAL IV ONE (08:22)
[2020-07-09] MEDS ORDERED: AMIODARONE INJ 450 MG in DEXTROSE 5% 241 ML IV SCH (08:30)
[2020-07-09] MEDS: INSULIN REGULAR 100 UNIT/ML SUBCUT SCH ×4 (09:03→20:26)
[2020-07-09] MEDS: AMIODARONE 200 MG TABLET PO SCH (09:03)
[2020-07-09] MEDS: ASPIRIN CHEW 81 MG TABLET PO SCH (09:03)
[2020-07-09] MEDS: CHLORHEXIDINE 0.12% ORAL RINSE 60 ML BOTTLE SWISH/SPIT SCH ×2 (09:04→20:25)
[2020-07-09] MEDS: METOPROLOL TARTRATE 50 MG TABLET PO SCH (09:04)
[2020-07-09] MEDS: ASCORBIC ACID 500 MG TABLET NG SCH ×2 (09:05→20:25)
[2020-07-09] MEDS: DILTIAZEM INJ 100 MG in SODIUM CHLORIDE 0.9% 100 ML IV SCH ×2 (13:31→22:53)
[2020-07-09] MEDS: AMIODARONE INJ 450 MG in DEXTROSE 5% 241 ML IV SCH (14:37)
[2020-07-09] MEDS: APIXABAN 5 MG TABLET PO SCH (20:25)
[2020-07-09] MEDS: ROSUVASTATIN 20 MG TABLET NG SCH (20:25)
[2020-07-10] MEDS: DOBUTamine 500 MG/250 ML PREMIX IV SCH ×2 (00:45→22:12)
[2020-07-10] MEDS: ALBUTEROL/IPRATROPIUM 3 ML NEB RESP TX SCH ×6 (02:42→22:24)
[2020-07-10] MEDS: FUROSEMIDE INJ 100 MG in SODIUM CHLORIDE 0.9% 90 ML IV SCH ×6 (04:05→22:11)
[2020-07-10 05:05] LABS: Basophils % 0.2 % (0.0-0.8); Eosinophils # 0.2 10*3/uL (0.0-0.87); Hematocrit 28.3 VOL% (35.7-47.0); Hemoglobin 8.4 GM/DL (12.0-16.0); Immature Granulocytes % 0.9 %; Immature Granulocytes Absolute 0.08 #; Lymphocytes # 0.7 10*3/uL (1.4-4.0); Lymphocytes % 7.5 % (21.3-54.2); Mean Corpuscular HGB Conc 29.7 GM/DL (32-36); Mean Corpuscular Volume 95.6 FL (87-102); Mean Platelet Volume 11.3 FL (9.6-12.0); Monocytes % 13.5 % (1.7-12.7); NRBC # 0.03 10*3/uL; Neutrophils % 75.9 % (38.7-73.9); Platelet Count 151 T/CUMM (130-400); Red Blood Count 2.96 MC/CUMM (3.8-5.5); Red Cell Distribution Width 19.1 % (9.3-17.3); White Blood Count 9.1 T/CUMM (4-12)
[2020-07-10 05:28] LABS: Albumin 2.9 G/DL (3.4-5.0); Bilirubin,Total 0.7 MG/DL (0.2-1.0); Calcium 8.6 MG/DL (8.5-10.1); Osmolality,Calculated 296.1 MOS/KG (273-304); Potassium 5.5 MMOL/L (3.5-5.1); Total Protein 6.8 G/DL (6.4-8.2)
[2020-07-10] MEDS: AMIODARONE INJ 450 MG in DEXTROSE 5% 241 ML IV SCH (06:26)
[2020-07-10] MEDS: ASPIRIN CHEW 81 MG TABLET PO SCH (09:04)
[2020-07-10] MEDS: APIXABAN 5 MG TABLET PO SCH ×2 (09:04→21:32)
[2020-07-10] MEDS: ASCORBIC ACID 500 MG TABLET NG SCH ×2 (09:04→21:32)
[2020-07-10] MEDS: CHLORHEXIDINE 0.12% ORAL RINSE 60 ML BOTTLE SWISH/SPIT SCH ×2 (09:30→21:32)
[2020-07-10] MEDS: METOPROLOL SUCCINATE XL 25 MG TABLET PO SCH (10:20)
[2020-07-10] MEDS: DILTIAZEM INJ 100 MG in SODIUM CHLORIDE 0.9% 100 ML IV SCH (10:27)
[2020-07-10] MEDS: INSULIN REGULAR 100 UNIT/ML SUBCUT SCH ×4 (10:35→20:11)
[2020-07-10] MEDS: ONDANSETRON 4 MG/2 ML VIAL IV PRN (13:20)
[2020-07-10 15:42] LABS: Hepatitis B Core IgM Quant 0.13 Index; Hepatitis B Surface Ag Quant < 0.10 Index; Hepatitis B Surface Ag Result Non-Reactive (NonReactive); Hepatitis C Virus Ab Quant 0.15 Index; Hepatitis C Virus Ab Result Non-Reactive (NonReactive)
[2020-07-10] MEDS ORDERED: HEPARIN 10,000 UNIT/10 ML VIAL IV SCH (16:30)
[2020-07-10] MEDS: ROSUVASTATIN 20 MG TABLET NG SCH (21:32)
[2020-07-11] MEDS: AMIODARONE INJ 450 MG in DEXTROSE 5% 241 ML IV SCH (00:41)
[2020-07-11] MEDS: DILTIAZEM INJ 100 MG in SODIUM CHLORIDE 0.9% 100 ML IV SCH (00:42)
[2020-07-11] MEDS: FUROSEMIDE INJ 100 MG in SODIUM CHLORIDE 0.9% 90 ML IV SCH ×2 (03:09→07:03)
[2020-07-11] MEDS: ALBUTEROL/IPRATROPIUM 3 ML NEB RESP TX SCH ×5 (03:15→17:58)
[2020-07-11 03:32] LABS: Basophils % 0.2 % (0.0-0.8); Eosinophils # 0.3 10*3/uL (0.0-0.87); Hematocrit 28.4 VOL% (35.7-47.0); Hemoglobin 8.5 GM/DL (12.0-16.0); Immature Granulocytes % 1.3 %; Immature Granulocytes Absolute 0.11 #; Lymphocytes # 0.7 10*3/uL (1.4-4.0); Lymphocytes % 7.8 % (21.3-54.2); Mean Corpuscular HGB Conc 29.9 GM/DL (32-36); Mean Corpuscular Volume 94.7 FL (87-102); Mean Platelet Volume 11.5 FL (9.6-12.0); Monocytes % 13.5 % (1.7-12.7); NRBC # 0.03 10*3/uL; Neutrophils % 73.2 % (38.7-73.9); Platelet Count 174 T/CUMM (130-400); Red Cell Distribution Width 18.6 % (9.3-17.3); White Blood Count 8.3 T/CUMM (4-12)
[2020-07-11 03:50] LABS: Calcium 8.6 MG/DL (8.5-10.1); Osmolality,Calculated 289.1 MOS/KG (273-304); Potassium 5.1 MMOL/L (3.5-5.1)
[2020-07-11] MEDS: DOBUTamine 500 MG/250 ML PREMIX IV SCH ×2 (04:28→23:00)
[2020-07-11] MEDS ORDERED: POLYETHYLENE GLYCOL POWDER 17 GM PACK PO PRN (08:00)
[2020-07-11] MEDS: INSULIN REGULAR 100 UNIT/ML SUBCUT SCH (08:16)
[2020-07-11] MEDS: DOCUSATE SODIUM 100 MG CAPSULE PO PRN (09:41)
[2020-07-11] MEDS: ASPIRIN CHEW 81 MG TABLET PO SCH (09:41)
[2020-07-11] MEDS: METOPROLOL SUCCINATE XL 25 MG TABLET PO SCH ×3 (09:42→21:02)
[2020-07-11] MEDS: CHLORHEXIDINE 0.12% ORAL RINSE 60 ML BOTTLE SWISH/SPIT SCH ×2 (09:42→21:01)
[2020-07-11] MEDS: ASCORBIC ACID 500 MG TABLET NG SCH ×2 (09:42→21:02)
[2020-07-11] MEDS: APIXABAN 5 MG TABLET PO SCH ×2 (09:42→21:01)
[2020-07-11] MEDS: AMIODARONE 200 MG TABLET PO SCH ×2 (09:44→21:01)
[2020-07-11] MEDS ORDERED: AMIODARONE 200 MG TABLET PO SCH (21:00)
[2020-07-11] MEDS: ROSUVASTATIN 20 MG TABLET NG SCH (21:01)
[2020-07-12] MEDS: ALBUTEROL/IPRATROPIUM 3 ML NEB RESP TX SCH ×7 (00:23→23:30)
[2020-07-12 06:21] LABS: Basophils % 0.1 % (0.0-0.8); Eosinophils # 0.3 10*3/uL (0.0-0.87); Eosinophils % 3.2 % (0.00-10.9); Hematocrit 29.6 VOL% (35.7-47.0); Hemoglobin 8.9 GM/DL (12.0-16.0); Immature Granulocytes Absolute 0.09 #; Lymphocytes # 0.6 10*3/uL (1.4-4.0); Lymphocytes % 6.6 % (21.3-54.2); Mean Corpuscular HGB Conc 30.1 GM/DL (32-36); Mean Corpuscular Volume 95.2 FL (87-102); Mean Platelet Volume 11.4 FL (9.6-12.0); Monocytes % 11.3 % (1.7-12.7); NRBC # 0.02 10*3/uL; Neutrophils % 77.8 % (38.7-73.9); Platelet Count 194 T/CUMM (130-400); Red Blood Count 3.11 MC/CUMM (3.8-5.5); Red Cell Distribution Width 18.8 % (9.3-17.3); White Blood Count 9.1 T/CUMM (4-12)
[2020-07-12 06:45] LABS: Calcium 8.4 MG/DL (8.5-10.1); Osmolality,Calculated 278.2 MOS/KG (273-304); Potassium 4.5 MMOL/L (3.5-5.1)
[2020-07-12] MEDS: ASPIRIN CHEW 81 MG TABLET PO SCH (09:15)
[2020-07-12] MEDS: APIXABAN 5 MG TABLET PO SCH ×2 (09:16→21:33)
[2020-07-12] MEDS: AMIODARONE 200 MG TABLET PO SCH ×2 (09:16→21:33)
[2020-07-12] MEDS: METOPROLOL SUCCINATE XL 25 MG TABLET PO SCH ×2 (09:17→21:33)
[2020-07-12] MEDS: ASCORBIC ACID 500 MG TABLET NG SCH ×2 (09:17→21:33)
[2020-07-12] MEDS: CHLORHEXIDINE 0.12% ORAL RINSE 60 ML BOTTLE SWISH/SPIT SCH (09:17)
[2020-07-12] MEDS: oxyCODONE/ACETAMINOPHEN 5-325 MG TABLET PO PRN (09:35)
[2020-07-12] MEDS: DOBUTamine 500 MG/250 ML PREMIX IV SCH (10:15)
[2020-07-12] MEDS: ROSUVASTATIN 20 MG TABLET NG SCH (21:32)
[2020-07-12] MEDS: DOCUSATE SODIUM 100 MG CAPSULE PO PRN (21:32)
[2020-07-13] MEDS: ALBUTEROL/IPRATROPIUM 3 ML NEB RESP TX SCH ×6 (03:00→23:39)
[2020-07-13 04:05] LABS: Basophils % 0.3 % (0.0-0.8); Eosinophils # 0.4 10*3/uL (0.0-0.87); Eosinophils % 4.3 % (0.00-10.9); Hematocrit 27.6 VOL% (35.7-47.0); Hemoglobin 8.2 GM/DL (12.0-16.0); Immature Granulocytes % 1.4 %; Immature Granulocytes Absolute 0.14 #; Lymphocytes # 0.9 10*3/uL (1.4-4.0); Lymphocytes % 9.4 % (21.3-54.2); Mean Corpuscular HGB Conc 29.7 GM/DL (32-36); Mean Corpuscular Volume 95.8 FL (87-102); Mean Platelet Volume 11.2 FL (9.6-12.0); Monocytes % 9.9 % (1.7-12.7); NRBC # 0.02 10*3/uL; Neutrophils % 74.7 % (38.7-73.9); Platelet Count 205 T/CUMM (130-400); Red Blood Count 2.88 MC/CUMM (3.8-5.5); Red Cell Distribution Width 18.7 % (9.3-17.3); White Blood Count 9.9 T/CUMM (4-12)
[2020-07-13 04:17] LABS: Calcium 8.6 MG/DL (8.5-10.1); Osmolality,Calculated 276.1 MOS/KG (273-304); Potassium 4.4 MMOL/L (3.5-5.1)
[2020-07-13] MEDS: CHLORHEXIDINE 0.12% ORAL RINSE 60 ML BOTTLE SWISH/SPIT SCH ×3 (06:32→21:31)
[2020-07-13] MEDS: APIXABAN 5 MG TABLET PO SCH ×2 (08:54→21:31)
[2020-07-13] MEDS: POLYETHYLENE GLYCOL POWDER 17 GM PACK PO SCH (08:54)
[2020-07-13] MEDS: METOPROLOL SUCCINATE XL 25 MG TABLET PO SCH ×2 (08:54→21:31)
[2020-07-13] MEDS: ASPIRIN CHEW 81 MG TABLET PO SCH (08:54)
[2020-07-13] MEDS: AMIODARONE 200 MG TABLET PO SCH ×2 (08:54→21:31)
[2020-07-13] MEDS: ASCORBIC ACID 500 MG TABLET NG SCH ×2 (08:55→21:31)
[2020-07-13] MEDS: ONDANSETRON 4 MG/2 ML VIAL IV PRN (12:28)
[2020-07-13] MEDS: ROSUVASTATIN 20 MG TABLET NG SCH (21:31)
[2020-07-14] MEDS: ALBUTEROL/IPRATROPIUM 3 ML NEB RESP TX SCH ×6 (03:44→23:09)
[2020-07-14 05:10] LABS: Basophils % 0.2 % (0.0-0.8); Eosinophils # 0.3 10*3/uL (0.0-0.87); Eosinophils % 2.1 % (0.00-10.9); Hematocrit 28.8 VOL% (35.7-47.0); Hemoglobin 8.4 GM/DL (12.0-16.0); Immature Granulocytes % 1.3 %; Immature Granulocytes Absolute 0.17 #; Lymphocytes # 0.8 10*3/uL (1.4-4.0); Lymphocytes % 6.2 % (21.3-54.2); Mean Corpuscular HGB Conc 29.2 GM/DL (32-36); Mean Platelet Volume 10.6 FL (9.6-12.0); Monocytes % 8.3 % (1.7-12.7); Neutrophils % 81.9 % (38.7-73.9); Platelet Count 201 T/CUMM (130-400); Red Blood Count 2.94 MC/CUMM (3.8-5.5); Red Cell Distribution Width 18.9 % (9.3-17.3); White Blood Count 12.8 T/CUMM (4-12)
[2020-07-14 05:45] LABS: Calcium 8.7 MG/DL (8.5-10.1); Osmolality,Calculated 279.1 MOS/KG (273-304); Potassium 4.7 MMOL/L (3.5-5.1)
[2020-07-14] MEDS: CHLORHEXIDINE 0.12% ORAL RINSE 60 ML BOTTLE SWISH/SPIT SCH ×2 (08:38→20:15)
[2020-07-14] MEDS: POLYETHYLENE GLYCOL POWDER 17 GM PACK PO SCH (08:38)
[2020-07-14] MEDS: ASPIRIN CHEW 81 MG TABLET PO SCH (08:38)
[2020-07-14] MEDS: APIXABAN 5 MG TABLET PO SCH ×2 (08:38→20:15)
[2020-07-14] MEDS: ASCORBIC ACID 500 MG TABLET NG SCH ×2 (08:38→20:15)
[2020-07-14] MEDS: AMIODARONE 200 MG TABLET PO SCH ×2 (08:38→20:15)
[2020-07-14] MEDS: METOPROLOL SUCCINATE XL 25 MG TABLET PO SCH ×2 (08:38→21:34)
[2020-07-14] MEDS: oxyCODONE/ACETAMINOPHEN 5-325 MG TABLET PO PRN (08:39)
[2020-07-14] MEDS: DOCUSATE SODIUM 100 MG CAPSULE PO PRN (08:39)
[2020-07-14] MEDS: ONDANSETRON 4 MG/2 ML VIAL IV PRN ×2 (13:20→19:29)
[2020-07-14] MEDS: MORPHINE 4 MG/1 ML VIAL IV PRN (19:26)
[2020-07-14] MEDS: ROSUVASTATIN 20 MG TABLET NG SCH (20:15)
[2020-07-14] MEDS ORDERED: PROMETHAZINE INJ 12.5 MG in SODIUM CHLORIDE 0.9% 50 ML IV PRN (20:41)
[2020-07-14] MEDS: METOCLOPRAMIDE 10 MG/2 ML VIAL IV SCH (23:10)
[2020-07-15] MEDS: ALBUTEROL/IPRATROPIUM 3 ML NEB RESP TX SCH ×5 (03:12→18:02)
[2020-07-15 04:29] LABS: Basophils % 0.3 % (0.0-0.8); Eosinophils # 0.3 10*3/uL (0.0-0.87); Eosinophils % 1.9 % (0.00-10.9); Hematocrit 27.8 VOL% (35.7-47.0); Hemoglobin 8.3 GM/DL (12.0-16.0); Immature Granulocytes % 1.3 %; Immature Granulocytes Absolute 0.19 #; Lymphocytes # 0.9 10*3/uL (1.4-4.0); Mean Corpuscular HGB Conc 29.9 GM/DL (32-36); Mean Corpuscular Volume 97.2 FL (87-102); Mean Platelet Volume 10.9 FL (9.6-12.0); Monocytes % 7.6 % (1.7-12.7); Neutrophils % 82.9 % (38.7-73.9); Platelet Count 215 T/CUMM (130-400); Red Blood Count 2.86 MC/CUMM (3.8-5.5); White Blood Count 14.3 T/CUMM (4-12)
[2020-07-15 04:59] LABS: Calcium 8.6 MG/DL (8.5-10.1); Potassium 4.8 MMOL/L (3.5-5.1)
[2020-07-15] MEDS: METOCLOPRAMIDE 10 MG/2 ML VIAL IV SCH ×3 (05:26→18:51)
[2020-07-15 07:45] VITALS: BP 102/51
[2020-07-15] MEDS: ASPIRIN CHEW 81 MG TABLET PO SCH (08:28)
[2020-07-15] MEDS: ONDANSETRON 4 MG/2 ML VIAL IV PRN (08:28)
[2020-07-15] MEDS: METOPROLOL SUCCINATE XL 25 MG TABLET PO SCH ×2 (08:29→20:50)
[2020-07-15] MEDS: APIXABAN 5 MG TABLET PO SCH ×2 (08:29→20:50)
[2020-07-15] MEDS: ASCORBIC ACID 500 MG TABLET NG SCH ×2 (08:29→20:50)
[2020-07-15] MEDS: AMIODARONE 200 MG TABLET PO SCH ×2 (08:29→20:50)
[2020-07-15] MEDS: POLYETHYLENE GLYCOL POWDER 17 GM PACK PO SCH (08:30)
[2020-07-15] MEDS: CHLORHEXIDINE 0.12% ORAL RINSE 60 ML BOTTLE SWISH/SPIT SCH ×2 (08:32→20:50)
[2020-07-15] MEDS: ROSUVASTATIN 20 MG TABLET NG SCH (20:50)
[2020-07-15] MEDS: MORPHINE 4 MG/1 ML VIAL IV PRN (20:53)
[2020-07-16] MEDS: ALBUTEROL/IPRATROPIUM 3 ML NEB RESP TX SCH ×6 (00:24→23:17)
[2020-07-16] MEDS: METOCLOPRAMIDE 10 MG/2 ML VIAL IV SCH ×4 (00:38→18:49)
[2020-07-16 05:44] LABS: Basophils # 0.1 10*3/uL (0.0-0.2); Basophils % 0.3 % (0.0-0.8); Eosinophils # 0.1 10*3/uL (0.0-0.87); Eosinophils % 0.8 % (0.00-10.9); Hematocrit 26.5 VOL% (35.7-47.0); Hemoglobin 7.8 GM/DL (12.0-16.0); Immature Granulocytes % 3.1 %; Immature Granulocytes Absolute 0.52 #; Lymphocytes # 0.9 10*3/uL (1.4-4.0); Lymphocytes % 5.7 % (21.3-54.2); Mean Corpuscular HGB Conc 29.4 GM/DL (32-36); Mean Corpuscular Volume 99.6 FL (87-102); Mean Platelet Volume 11.1 FL (9.6-12.0); Neutrophils % 80.1 % (38.7-73.9); Platelet Count 231 T/CUMM (130-400); Red Blood Count 2.66 MC/CUMM (3.8-5.5); Red Cell Distribution Width 19.2 % (9.3-17.3); White Blood Count 16.6 T/CUMM (4-12)
[2020-07-16 06:03] LABS: Calcium 8.6 MG/DL (8.5-10.1); Potassium 4.6 MMOL/L (3.5-5.1)
[2020-07-16 06:22] LABS: Anisocytosis 1+; Band Neutrophils 3 % (0-10); Hypochromasia 1+; Lymphocytes 7 % (20-55); Microcytosis 1+; Segmented Neutrophils 80 % (50-85); Total Cells Counted 100
[2020-07-16 06:23] LABS: Basophilic Stippling Slight; Ovalocytes Slight; Platelet Estimate Normal
[2020-07-16] MEDS ORDERED: SODIUM PHOSPHATE ENEMA 133 ML BOTTLE RECTAL ONE (07:31)
[2020-07-16] MEDS ORDERED: BISACODYL 10 MG SUPP RECTAL ONE (07:43)
[2020-07-16] MEDS: MORPHINE 4 MG/1 ML VIAL IV PRN (08:37)
[2020-07-16] MEDS: ONDANSETRON 4 MG/2 ML VIAL IV PRN (08:37)
[2020-07-16] MEDS: ASCORBIC ACID 500 MG TABLET NG SCH ×2 (09:13→21:59)
[2020-07-16] MEDS: CHLORHEXIDINE 0.12% ORAL RINSE 60 ML BOTTLE SWISH/SPIT SCH ×2 (09:13→22:00)
[2020-07-16] MEDS: ASPIRIN CHEW 81 MG TABLET PO SCH (09:13)
[2020-07-16] MEDS: AMIODARONE 200 MG TABLET PO SCH (09:13)
[2020-07-16] MEDS: POLYETHYLENE GLYCOL POWDER 17 GM PACK PO SCH (09:13)
[2020-07-16] MEDS: METOPROLOL SUCCINATE XL 25 MG TABLET PO SCH (09:13)
[2020-07-16] MEDS: APIXABAN 5 MG TABLET PO SCH ×2 (09:13→22:00)
[2020-07-16] MEDS: DOCUSATE SODIUM 100 MG CAPSULE PO SCH ×2 (09:39→21:59)
[2020-07-16] MEDS ORDERED: CLORAZEPATE 3.75 MG TABLET PO PRN (16:56)
[2020-07-16] MEDS: PHENYLEPHRINE DRIP 40 MG/250 ML PREMIX IV PRN (18:41)
[2020-07-16] MEDS: ROSUVASTATIN 20 MG TABLET NG SCH (21:59)
[2020-07-16] MEDS ORDERED: PHENYLEPHRINE INJ 160 MG in SODIUM CHLORIDE 0.9% 234 ML IV PRN (22:40)
[2020-07-16] MEDS ORDERED: EPINEPHrine 1 MG/ML VIAL ONE (22:49)
[2020-07-17] MEDS ORDERED: SODIUM BICARBONATE 50 MEQ/50 ML VIAL IV ONE ×3 (00:25→02:01)
[2020-07-17 01:48] LABS: ABG Base Excess -6.1 MMOL/L (-2.5-2.5); ABG HCO3 19.3 MMOL/L (20-26); ABG PCO2 59.7 MM HG (35-48); ABG PH 7.185 (7.35-7.45); ABG PO2 85.8 MM HG (80-95); ABG TCO2 21.6 MMOL/L (23-27); Allen Test Positive; Pt O2 Delivery Device Other
[2020-07-17 03:52] LABS: ABG Base Excess -5.9 MMOL/L (-2.5-2.5); ABG HCO3 19.6 MMOL/L (20-26); ABG Oxygen Saturation 99.2 % (95-100); ABG PCO2 54.3 MM HG (35-48); ABG PH 7.218 (7.35-7.45); ABG TCO2 20.9 MMOL/L (23-27)
[2020-07-17] MEDS: ALBUTEROL/IPRATROPIUM 3 ML NEB RESP TX SCH ×7 (04:10→23:47)
[2020-07-17 05:45] LABS: Basophils % 0.1 % (0.0-0.8); Hematocrit 25.8 VOL% (35.7-47.0); Hemoglobin 7.6 GM/DL (12.0-16.0); Immature Granulocytes % 3.4 %; Immature Granulocytes Absolute 0.85 #; Lymphocytes # 1.3 10*3/uL (1.4-4.0); Lymphocytes % 5.3 % (21.3-54.2); Mean Corpuscular HGB Conc 29.5 GM/DL (32-36); Mean Corpuscular Volume 100.4 FL (87-102); Mean Platelet Volume 10.8 FL (9.6-12.0); NRBC # 0.05 10*3/uL; Neutrophils % 84.2 % (38.7-73.9); Platelet Count 274 T/CUMM (130-400); Red Blood Count 2.57 MC/CUMM (3.8-5.5); Red Cell Distribution Width 19.5 % (9.3-17.3); White Blood Count 25.2 T/CUMM (4-12)
[2020-07-17 05:53] LABS: Calcium 8.8 MG/DL (8.5-10.1); Osmolality,Calculated 282.7 MOS/KG (273-304); Potassium 5.3 MMOL/L (3.5-5.1)
[2020-07-17] MEDS ORDERED: PROMETHAZINE 25 MG/1 ML VIAL ONE (06:05)
[2020-07-17] MEDS: DEXTROSE 50% 25 GM/50 ML VIAL IV PRN ×3 (06:05→19:44)
[2020-07-17 06:06] LABS: Band Neutrophils 1 % (0-10); Burr Cells Slight; Eosinophils 1 % (0-10); Hypochromasia 1+; Lymphocytes 6 % (20-55); Microcytosis Slight; Ovalocytes Slight; Platelet Estimate Adequate; Segmented Neutrophils 87 % (50-85); Total Cells Counted 100
[2020-07-17] MEDS ORDERED: PROMETHAZINE 25 MG/1 ML VIAL IM ONE (06:41)
[2020-07-17] MEDS: PANTOPRAZOLE 40 MG VIAL IV SCH ×2 (08:37→21:56)
[2020-07-17] MEDS ORDERED: PHENYLEPHRINE DRIP 40 MG/250 ML PREMIX IV ONE (10:45)
[2020-07-17] MEDS: PHENYLEPHRINE DRIP 40 MG/250 ML PREMIX IV PRN ×2 (10:50→17:34)
[2020-07-17] MEDS: AMIODARONE 200 MG TABLET PO SCH (11:05)
[2020-07-17] MEDS: METOPROLOL SUCCINATE XL 25 MG TABLET PO SCH (11:06)
[2020-07-17] MEDS: DEXTROSE 10% 1,000 ML IV SCH (11:33)
[2020-07-17] MEDS: PHENYLEPHRINE INJ 160 MG in SODIUM CHLORIDE 0.9% 234 ML IV PRN ×3 (12:03→23:50)
[2020-07-17] MEDS: POLYETHYLENE GLYCOL POWDER 17 GM PACK PO SCH (12:45)
[2020-07-17] MEDS: DOCUSATE SODIUM 100 MG CAPSULE PO SCH ×2 (12:45→22:10)
[2020-07-17] MEDS: CHLORHEXIDINE 0.12% ORAL RINSE 60 ML BOTTLE SWISH/SPIT SCH ×2 (12:46→22:10)
[2020-07-17] MEDS: ASCORBIC ACID 500 MG TABLET NG SCH ×2 (12:46→22:10)
[2020-07-17] MEDS ORDERED: DEXTROSE 10% 250 ML BAG IV PRN (12:53)
[2020-07-17] MEDS: ASPIRIN CHEW 81 MG TABLET PO SCH (18:34)
[2020-07-17] MEDS ORDERED: APIXABAN 2.5 MG TABLET PO SCH (21:00)
[2020-07-17] MEDS: ROSUVASTATIN 20 MG TABLET NG SCH (22:10)
[2020-07-18] MEDS ORDERED: SODIUM BICARBONATE 50 MEQ/50 ML VIAL IV ONE ×2 (00:01→07:13)
[2020-07-18] MEDS: DEXTROSE 50% 25 GM/50 ML VIAL IV PRN ×3 (00:52→07:14)
[2020-07-18] MEDS: ALBUTEROL/IPRATROPIUM 3 ML NEB RESP TX SCH ×2 (02:45→07:53)
[2020-07-18] MEDS: DEXTROSE 10% 1,000 ML IV SCH (04:29)
[2020-07-18 04:32] LABS: Basophils % 0.1 % (0.0-0.8); Hematocrit 22.7 VOL% (35.7-47.0); Hemoglobin 6.5 GM/DL (12.0-16.0); Immature Granulocytes % 7.4 %; Immature Granulocytes Absolute 2.49 #; Lymphocytes # 2.1 10*3/uL (1.4-4.0); Lymphocytes % 6.2 % (21.3-54.2); Mean Corpuscular HGB Conc 28.6 GM/DL (32-36); Mean Corpuscular Volume 105.6 FL (87-102); Monocytes % 5.7 % (1.7-12.7); Neutrophils % 80.6 % (38.7-73.9); Platelet Count 207 T/CUMM (130-400); Red Blood Count 2.15 MC/CUMM (3.8-5.5); Red Cell Distribution Width 20.1 % (9.3-17.3); White Blood Count 33.6 T/CUMM (4-12)
[2020-07-18 04:51] LABS: Band Neutrophils 7 % (0-10); Burr Cells Few; Lymphocytes 7 % (20-55); Metamyelocytes 1 %; Nucleated Red Blood Cells 2 (0-5); Segmented Neutrophils 82 % (50-85); Total Cells Counted 100
[2020-07-18 04:52] LABS: Acanthocytes Few; Anisocytosis 1+; Hypochromasia Slight; Microcytosis 1+; Polychromasia Slight
[2020-07-18 04:53] LABS: Poikilocytosis 1+
[2020-07-18 05:06] LABS: Albumin 2.3 G/DL (3.4-5.0); Bilirubin,Total 1.9 MG/DL (0.2-1.0); Calcium 7.9 MG/DL (8.5-10.1); Osmolality,Calculated 281.5 MOS/KG (273-304); Potassium 4.8 MMOL/L (3.5-5.1)
[2020-07-18] MEDS: PHENYLEPHRINE INJ 160 MG in SODIUM CHLORIDE 0.9% 234 ML IV PRN (06:52)
[2020-07-18] MEDS ORDERED: AMIODARONE 200 MG TABLET PO SCH (21:00)
== END 2020-07-18 07:52 | disposition expired | DRG 235 ==
LOC: N.4E 08:49 → N.CVR 07-04 11:38 → N.ICU 07-05 15:30